=== PATIENT | male | born 1995 | race Caucasian/White ===

== ENCOUNTER 2018-07-03 15:16 | Emergency (ER) | payer OTHER ==
[~2018-07-03] VITALS: Ht 190.5 cm; Wt 100.0 kg
[2018-07-03 15:23] VITALS: TEMP 97.5
[2018-07-03 17:43] VITALS: BP 119/79; PULSE 74
== END 2018-07-03 18:00 | disposition home or self-care (01) ==
LOC: COL.ER 15:16
DX: S82.61XA Displaced fracture of lateral malleolus of right fibula, initial encounter for closed fracture (principal); X50.0XXA Overexertion from strenuous movement or load, initial encounter; Y92.828 Other wilderness area as the place of occurrence of the external cause
CPT/HCPCS: Q4045